=== PATIENT | male | born 1960 | race Asian ===

== ENCOUNTER 2023-05-16 06:06 | Day surgery (SDC) | payer BC ==
[2023-05-15 10:09] VITALS: BMI 22.8
[2023-05-16] MEDS ORDERED: Bupivacaine 0.25% HCL 30 ML VIAL ONE (06:35)
[2023-05-16] MEDS ORDERED: EPINEPHrine 1 MG/ML VIAL ONE (06:35)
[2023-05-16] MEDS ORDERED: Rocuronium Bromide 10 MG/ML (10ML VIAL) ONE (06:56)
[2023-05-16] MEDS ORDERED: SUGAMMADEX SODIUM 200 MG/2 ML VIAL ONE (06:56)
[2023-05-16] MEDS ORDERED: Midazolam HCl 2 mg/2 ml Vial ONE (06:56)
[2023-05-16] MEDS ORDERED: Ondansetron PF 4 MG/2 ML Vial ONE (06:56)
[2023-05-16] MEDS ORDERED: Dexamethasone 4 mg/ml Vial ONE (06:56)
[2023-05-16] MEDS ORDERED: Lidocaine 1% PF 5 ML VIAL ONE (06:56)
[2023-05-16] MEDS ORDERED: fentaNYL PF 100 MCG/2 ML SYRINGE ONE ×2 (06:56→09:18)
[2023-05-16] MEDS ORDERED: PROPOFOL 20 ML ONE (06:56)
[2023-05-16] MEDS ORDERED: CEFAZOLIN 2 GM VIAL ONE (07:26)
[2023-05-16] MEDS ORDERED: Sodium Chloride 0.9% 100 ML ONE (07:26)
[2023-05-16] MEDS ORDERED: ePHEDrine Sulfate 50 MG/10 ML VIAL ONE (08:17)
[2023-05-16] MEDS ORDERED: traMADol HCl 50 MG TAB ONE (10:01)
== END 2023-05-16 11:07 | disposition home or self-care (01) ==
LOC: SDC 06:06
PROVIDERS: ATTEND Surgery
PROC: 0YUA4JZ Supplement Bilateral Inguinal Region with Synthetic Substitute, Percutaneous Endoscopic Approach (ICD-10-PCS; principal; 2023-05-16)
DX: K40.20 Bilateral inguinal hernia, without obstruction or gangrene, not specified as recurrent (principal); Z98.52 Vasectomy status; Z79.899 Other long term (current) drug therapy
CPT/HCPCS: A4314; C1781; J0171; J0665; J1100; J2250; J2405; J2704; J3490